=== PATIENT | female | born 1965 | race Caucasian/White ===

== ENCOUNTER 2020-10-18 12:20 | Inpatient (IN) | payer OTHER ==
[~2020-10-18] VITALS: Ht 182.9 cm; Wt 94.5 kg
[~2020-10-18 12:20] MED LIST: NORCO 5-325 TA1 EACH
[2020-10-18] MEDS ORDERED: SODIUM CHLORIDE 0.9% 100 ML 100 ML IV STA (12:42)
[2020-10-18] MEDS ORDERED: DONNATAL/LIDOCAINE/MAALOX 30 ML SUSP PO STA (12:42)
[2020-10-18] MEDS ORDERED: ONDANSETRON HCL INJ 2MG/ML 2ML 2 MG/ML VIAL IV NR ×2 (12:45→14:15)
[2020-10-18 13:05] LABS: BASOPHILS # (AUTO) 0.1 (0.0-0.1); BASOPHILS % 0.3 % (0.0-1.0); EOSINOPHILS % 0.1 % (0.0-6.0); HEMOGLOBIN 14.2 g/dL (12.0-16.0); LYMPHOCYTES # (AUTO) 1.4 (1.0-3.2); LYMPHOCYTES % 7.1 % (18.0-39.1); MEAN CORPUSCULAR HGB CONC 31.6 g/dL (31-35); MEAN CORPUSCULAR VOLUME 85.7 fL (81-99); MONOCYTES # (AUTO) 0.9 (0.2-0.8); MONOCYTES % 4.4 % (4.4-11.3); NEUTROPHILS # (AUTO) 17.4 (2.1-6.9); NEUTROPHILS % 87.5 % (38.7-80.0); PLATELET COUNT 369 x10e3/uL (140-360); RED BLOOD COUNT 5.25 x10e6/uL (3.6-5.1); RED CELL DISTRIBUTION WIDTH 13.5 % (11.7-14.4)
[2020-10-18 13:50] LABS: ALANINE AMINOTRANSFERASE 232 IU/L (0-55); ALBUMIN 4.1 g/dL (3.5-5.0); ALBUMIN/GLOBULIN RATIO 1.1 (0.8-2.0); ALKALINE PHOSPHATASE 189 IU/L (40-150); ANION GAP 14.2 mmol/L (8-16); BLOOD UREA NITROGEN 13 mg/dL (7-26); BUN/CREATININE RATIO 14 (6-25); CALCIUM 9.7 mg/dL (8.4-10.2); CARBON DIOXIDE 24 mmol/L (22-29); CHLORIDE 105 mmol/L (98-107); CREATINE KINASE 74 IU/L (29-168); CREATININE, SERUM 0.93 mg/dL (0.57-1.11); EST GLOMERULAR FILTRATION RATE 62 ML/MIN (60-); GLUCOSE 151 mg/dL (74-118); POTASSIUM 4.2 mmol/L (3.5-5.1); SODIUM 139 mmol/L (136-145)
[2020-10-18] MEDS ORDERED: IOPAMIDOL 370 MG/ML 200 ML INFUS..BTL INJ ONE (13:54)
[2020-10-18] MEDS ORDERED: SODIUM CHLORIDE 0.9% 50ML 50 ML ONE (13:54)
[2020-10-18] MEDS ORDERED: MORPHINE SULFATE INJ 4 MG/ML INJ 1ML IV ONE (14:30)
[2020-10-18] MEDS ORDERED: SODIUM CHLORIDE 0.9% 1000ML 1,000 ML ONE (14:45)
[2020-10-18 16:24] LABS: LIPASE 8481 U/L (8-78)
[2020-10-18] MEDS ORDERED: SODIUM CHLORIDE 0.9% 1000ML 1,000 ML IV SCH (16:30)
[2020-10-18] MEDS: HYDROMORPHONE 1MG/1ML INJ IV PRN ×3 (16:43→23:08)
[2020-10-18] MEDS: PIPERACILLIN/TAZOBACTAM 3.375 GM in SODIUM CHLORIDE 0.9% 50ML 50 ML IV SCH ×2 (16:45→21:25)
[2020-10-18 18:05] VITALS: BP 127/81
[2020-10-18] MEDS ORDERED: ATIVAN0.5 MG PO (18:17)
[2020-10-18] MEDS ORDERED: ARMOUR THYROID60 MG PO ×3 (18:17→18:26)
[2020-10-18] MEDS ORDERED: REXULTI3 MG PO (18:25)
[2020-10-18] MEDS ORDERED: ORENCIA50 MG/0.4 (18:25)
[2020-10-18] MEDS ORDERED: TEMAZEPAM30 MG PO (18:25)
[2020-10-18] MEDS ORDERED: METHYLPHENIDATE10 MG PO (18:25)
[2020-10-18] MEDS ORDERED: VENLAFAXINE HC100 MG PO (18:25)
[2020-10-18 18:31] VITALS: BP 127/81
[2020-10-18] MEDS: ONDANSETRON HCL INJ 2MG/ML 2ML 2 MG/ML VIAL IV PRN (19:36)
[2020-10-18 19:50] VITALS: BP 128/83
[2020-10-18 20:00] VITALS: BP 128/83
[2020-10-18 20:07] VITALS: BP 128/83
[2020-10-18] MEDS ORDERED: MEROPENEM 1 GM in SODIUM CHLORIDE 0.9% 100 ML IV STA (23:53)
[2020-10-19] VITALS (7 sets, daily range): BP systolic 118–145; BP diastolic 71–81
[2020-10-19] MEDS: LACTATED RINGER'S 1,000 ML INJ SCH ×7 (00:17→23:55)
[2020-10-19] MEDS: HYDROMORPHONE 1MG/1ML INJ IV PRN ×4 (02:09→11:39)
[2020-10-19] MEDS: ONDANSETRON HCL INJ 2MG/ML 2ML 2 MG/ML VIAL IV PRN ×4 (02:09→21:45)
[2020-10-19 05:49] LABS: BASOPHILS % 0.3 % (0.0-1.0); EOSINOPHILS # (AUTO) 0.1 (0.0-0.4); EOSINOPHILS % 0.6 % (0.0-6.0); HEMATOCRIT 37.6 % (34.2-44.1); HEMOGLOBIN 11.7 g/dL (12.0-16.0); LYMPHOCYTES % 18.5 % (18.0-39.1); MEAN CORPUSCULAR HGB CONC 31.1 g/dL (31-35); MEAN CORPUSCULAR VOLUME 86.6 fL (81-99); MONOCYTES # (AUTO) 0.7 (0.2-0.8); MONOCYTES % 5.9 % (4.4-11.3); NEUTROPHILS # (AUTO) 8.2 (2.1-6.9); NEUTROPHILS % 74.3 % (38.7-80.0); PLATELET COUNT 281 x10e3/uL (140-360); RED BLOOD COUNT 4.34 x10e6/uL (3.6-5.1); RED CELL DISTRIBUTION WIDTH 13.6 % (11.7-14.4)
[2020-10-19] MEDS: MEROPENEM 500 MG in SODIUM CHLORIDE 0.9% 50ML 50 ML IV SCH ×3 (06:06→21:45)
[2020-10-19 06:11] LABS: ALBUMIN 3.3 g/dL (3.5-5.0); ALBUMIN/GLOBULIN RATIO 1.1 (0.8-2.0); ANION GAP 13.9 mmol/L (8-16); CALCIUM 8.8 mg/dL (8.4-10.2); CHOL/HDL RATIO 4.6 (3.0-3.6); CREATININE, SERUM 0.8 mg/dL (0.57-1.11); POTASSIUM 3.9 mmol/L (3.5-5.1)
[2020-10-19 06:31] LABS: AMYLASE 2075 U/L (25-125)
[2020-10-19 07:29] LABS: LIPASE 1567 U/L (8-78)
[2020-10-19] MEDS ORDERED: SODIUM CHLORIDE 0.9% 50ML 50 ML ONE (08:29)
[2020-10-19] MEDS ORDERED: GADOBENATE DIMEGLUMINE 1 ML IV ONE (08:29)
[2020-10-19] MEDS: HYDROMORPHONE 2MG/ML 2 MG/ML ML IV PRN ×4 (12:17→21:45)
[2020-10-19 22:58] LABS: % IRON SATURATION 15 % (15-50); IRON 53 ug/dL (50-170); TOTAL IRON BINDING CAPACITY 350 ug/dL (261-478); TRANSFERRIN 250 mg/dL (180-382)
[2020-10-20] VITALS (8 sets, daily range): BP systolic 103–123; BP diastolic 63–79
[2020-10-20] MEDS: HYDROMORPHONE 2MG/ML 2 MG/ML ML IV PRN ×8 (01:00→23:19)
[2020-10-20 04:41] LABS: BASOPHILS % 0.3 % (0.0-1.0); EOSINOPHILS # (AUTO) 0.2 (0.0-0.4); EOSINOPHILS % 1.4 % (0.0-6.0); HEMATOCRIT 33.1 % (34.2-44.1); HEMOGLOBIN 10.4 g/dL (12.0-16.0); LYMPHOCYTES # (AUTO) 2.4 (1.0-3.2); LYMPHOCYTES % 21.3 % (18.0-39.1); MEAN CORPUSCULAR HEMOGLOBIN 26.9 pg (28-32); MEAN CORPUSCULAR HGB CONC 31.4 g/dL (31-35); MEAN CORPUSCULAR VOLUME 85.5 fL (81-99); MONOCYTES # (AUTO) 0.9 (0.2-0.8); MONOCYTES % 8.4 % (4.4-11.3); NEUTROPHILS # (AUTO) 7.5 (2.1-6.9); NEUTROPHILS % 68.2 % (38.7-80.0); PLATELET COUNT 240 x10e3/uL (140-360); RED BLOOD COUNT 3.87 x10e6/uL (3.6-5.1); RED CELL DISTRIBUTION WIDTH 13.4 % (11.7-14.4)
[2020-10-20 05:07] LABS: ALBUMIN 3.1 g/dL (3.5-5.0); ALBUMIN/GLOBULIN RATIO 1.1 (0.8-2.0); ANION GAP 11.6 mmol/L (8-16); CALCIUM 8.4 mg/dL (8.4-10.2); CREATININE, SERUM 0.74 mg/dL (0.57-1.11); POTASSIUM 3.6 mmol/L (3.5-5.1)
[2020-10-20] MEDS: LACTATED RINGER'S 1,000 ML INJ SCH ×6 (05:53→23:53)
[2020-10-20] MEDS: MEROPENEM 500 MG in SODIUM CHLORIDE 0.9% 50ML 50 ML IV SCH ×3 (05:53→21:16)
[2020-10-20] MEDS: ONDANSETRON HCL INJ 2MG/ML 2ML 2 MG/ML VIAL IV PRN ×2 (09:56→16:08)
[2020-10-21] VITALS (8 sets, daily range): BP systolic 108–133; BP diastolic 46–83
[2020-10-21] MEDS: HYDROMORPHONE 2MG/ML 2 MG/ML ML IV PRN ×6 (02:45→23:14)
[2020-10-21] MEDS: LACTATED RINGER'S 1,000 ML INJ SCH ×5 (04:00→21:30)
[2020-10-21 04:43] LABS: BASOPHILS % 0.3 % (0.0-1.0); EOSINOPHILS # (AUTO) 0.3 (0.0-0.4); EOSINOPHILS % 2.9 % (0.0-6.0); HEMATOCRIT 33.2 % (34.2-44.1); HEMOGLOBIN 10.4 g/dL (12.0-16.0); LYMPHOCYTES # (AUTO) 1.9 (1.0-3.2); LYMPHOCYTES % 17.4 % (18.0-39.1); MEAN CORPUSCULAR HEMOGLOBIN 26.9 pg (28-32); MEAN CORPUSCULAR HGB CONC 31.3 g/dL (31-35); MONOCYTES # (AUTO) 1.1 (0.2-0.8); MONOCYTES % 9.8 % (4.4-11.3); NEUTROPHILS # (AUTO) 7.7 (2.1-6.9); NEUTROPHILS % 69.2 % (38.7-80.0); PLATELET COUNT 234 x10e3/uL (140-360); RED BLOOD COUNT 3.86 x10e6/uL (3.6-5.1); RED CELL DISTRIBUTION WIDTH 13.2 % (11.7-14.4)
[2020-10-21 05:07] LABS: ALBUMIN 3.1 g/dL (3.5-5.0); ALBUMIN/GLOBULIN RATIO 0.9 (0.8-2.0); ANION GAP 13.5 mmol/L (8-16); CALCIUM 8.9 mg/dL (8.4-10.2); CREATININE, SERUM 0.73 mg/dL (0.57-1.11); POTASSIUM 3.5 mmol/L (3.5-5.1)
[2020-10-21] MEDS: MEROPENEM 500 MG in SODIUM CHLORIDE 0.9% 50ML 50 ML IV SCH ×3 (05:59→21:30)
[2020-10-21] MEDS ORDERED: ROCURONIUM BROMIDE 10 MG/ML 5ML VIAL IV ONE (12:50)
[2020-10-21] MEDS ORDERED: DEXAMETHASONE SOD PHOS INJ 4 MG/ML VIAL ONE (12:50)
[2020-10-21] MEDS ORDERED: PROPOFOL IV EMULSION 10 MG/ML 20 ML VIAL ONE (12:50)
[2020-10-21] MEDS ORDERED: ONDANSETRON HCL INJ 2MG/ML 2ML 2 MG/ML VIAL ONE (12:50)
[2020-10-21] MEDS ORDERED: GLYCOPYRROLATE INJ 0.2 MG/ML VIAL ONE (12:50)
[2020-10-21] MEDS ORDERED: SEVOFLURANE INHAL SOLN 250 ML PEN BTL ONE (12:50)
[2020-10-21] MEDS ORDERED: LIDOCAINE HCL 2% LOCAL INJ 5 ML SDV VIAL INJ ONE (12:50)
[2020-10-21] MEDS ORDERED: NEOSTIGMINE 1 MG/ML 10ML VIAL ONE (12:50)
[2020-10-21] MEDS ORDERED: POVIDONE IODINE 0.05% 0.05 % ML PO ONE (12:50)
[2020-10-21] MEDS: ONDANSETRON HCL INJ 2MG/ML 2ML 2 MG/ML VIAL IV PRN (13:00)
[2020-10-22] VITALS (7 sets, daily range): BP systolic 110–150; BP diastolic 73–82
[2020-10-22] MEDS: HYDROMORPHONE 2MG/ML 2 MG/ML ML IV PRN ×2 (02:11→05:35)
[2020-10-22 04:56] LABS: BASOPHILS % 0.4 % (0.0-1.0); EOSINOPHILS # (AUTO) 0.4 (0.0-0.4); EOSINOPHILS % 4.8 % (0.0-6.0); HEMOGLOBIN 10.3 g/dL (12.0-16.0); LYMPHOCYTES # (AUTO) 2.7 (1.0-3.2); MEAN CORPUSCULAR HEMOGLOBIN 27.7 pg (28-32); MEAN CORPUSCULAR HGB CONC 32.2 g/dL (31-35); MONOCYTES # (AUTO) 0.8 (0.2-0.8); MONOCYTES % 9.5 % (4.4-11.3); NEUTROPHILS # (AUTO) 4.3 (2.1-6.9); NEUTROPHILS % 52.2 % (38.7-80.0); PLATELET COUNT 242 x10e3/uL (140-360); RED BLOOD COUNT 3.72 x10e6/uL (3.6-5.1); RED CELL DISTRIBUTION WIDTH 13.2 % (11.7-14.4)
[2020-10-22 05:16] LABS: AMYLASE 111 U/L (25-125); LIPASE 25 U/L (8-78)
[2020-10-22] MEDS: MEROPENEM 500 MG in SODIUM CHLORIDE 0.9% 50ML 50 ML IV SCH ×3 (05:35→22:20)
[2020-10-22] MEDS: LACTATED RINGER'S 1,000 ML INJ SCH ×2 (05:35→20:40)
[2020-10-22] MEDS ORDERED: BUPIVACAINE HCL 0.5% INJ 30 ML VIAL INJ ONE (08:03)
[2020-10-22] MEDS ORDERED: IOPAMIDOL 300MG/ML 50ML INFUS..BTL IV ONE (08:03)
[2020-10-22] MEDS ORDERED: BUPIVACAINE LIPOSOME/PF 266 MG/20 ML IJ ONE (10:53)
[2020-10-22] MEDS ORDERED: FENTANYL CITRATE/PF 100MCG/2 ML INJ ONE ×2 (11:28→12:04)
[2020-10-22] MEDS ORDERED: ACETAMINOPHEN 1000 MG/100 ML IV PRN (11:30)
[2020-10-22] MEDS ORDERED: NALOXONE HCL INJ 0.4 MG/ML AMP IV PRN (11:30)
[2020-10-22] MEDS ORDERED: HYDROMORPHONE 1MG/1ML INJ ONE (11:51)
[2020-10-22] MEDS: HYDROMORPHONE 0.2MG/ML-SOD CHL 30ML PCA SYRINGE IV PRN ×2 (11:53→17:30)
[2020-10-22] MEDS ORDERED: MIDAZOLAM HCL 2 MG/2 ML VIAL ONE (12:04)
[2020-10-22] MEDS ORDERED: HYDROMORPHONE 1MG/1ML INJ IV STA (19:39)
[2020-10-22] MEDS: LORAZEPAM INJ 2 MG/ML VIAL IV PRN (20:41)
[2020-10-23] VITALS (8 sets, daily range): BP systolic 124–145; BP diastolic 69–84
[2020-10-23] MEDS: LACTATED RINGER'S 1,000 ML INJ SCH ×3 (00:43→17:56)
[2020-10-23] MEDS: ONDANSETRON HCL INJ 2MG/ML 2ML 2 MG/ML VIAL IV PRN (02:58)
[2020-10-23] MEDS: MEROPENEM 500 MG in SODIUM CHLORIDE 0.9% 50ML 50 ML IV SCH ×3 (06:00→21:31)
[2020-10-23 06:04] LABS: BASOPHILS % 0.2 % (0.0-1.0); EOSINOPHILS # (AUTO) 0.1 (0.0-0.4); EOSINOPHILS % 0.6 % (0.0-6.0); HEMATOCRIT 32.1 % (34.2-44.1); HEMOGLOBIN 10.4 g/dL (12.0-16.0); LYMPHOCYTES # (AUTO) 1.8 (1.0-3.2); LYMPHOCYTES % 17.8 % (18.0-39.1); MEAN CORPUSCULAR HEMOGLOBIN 27.4 pg (28-32); MEAN CORPUSCULAR HGB CONC 32.4 g/dL (31-35); MEAN CORPUSCULAR VOLUME 84.7 fL (81-99); NEUTROPHILS # (AUTO) 7.2 (2.1-6.9); NEUTROPHILS % 71.2 % (38.7-80.0); PLATELET COUNT 308 x10e3/uL (140-360); RED BLOOD COUNT 3.79 x10e6/uL (3.6-5.1)
[2020-10-23 06:28] LABS: ALBUMIN/GLOBULIN RATIO 0.9 (0.8-2.0); ANION GAP 13.6 mmol/L (8-16); CALCIUM 8.7 mg/dL (8.4-10.2); CREATININE, SERUM 0.72 mg/dL (0.57-1.11); POTASSIUM 3.6 mmol/L (3.5-5.1)
[2020-10-23] MEDS: HYDROMORPHONE 0.2MG/ML-SOD CHL 30ML PCA SYRINGE IV PRN ×3 (08:00→20:00)
[2020-10-23] MEDS: LORAZEPAM INJ 2 MG/ML VIAL IV PRN (12:19)
[2020-10-24] VITALS (8 sets, daily range): BP systolic 113–130; BP diastolic 63–79
[2020-10-24] MEDS: HYDROMORPHONE 0.2MG/ML-SOD CHL 30ML PCA SYRINGE IV PRN (04:18)
[2020-10-24] MEDS: MEROPENEM 500 MG in SODIUM CHLORIDE 0.9% 50ML 50 ML IV SCH ×3 (06:31→22:50)
[2020-10-24 08:07] LABS: BASOPHILS % 0.4 % (0.0-1.0); EOSINOPHILS # (AUTO) 0.2 (0.0-0.4); EOSINOPHILS % 1.9 % (0.0-6.0); HEMATOCRIT 33.9 % (34.2-44.1); HEMOGLOBIN 10.8 g/dL (12.0-16.0); LYMPHOCYTES # (AUTO) 1.9 (1.0-3.2); LYMPHOCYTES % 20.7 % (18.0-39.1); MEAN CORPUSCULAR HEMOGLOBIN 27.1 pg (28-32); MEAN CORPUSCULAR HGB CONC 31.9 g/dL (31-35); MEAN CORPUSCULAR VOLUME 85.2 fL (81-99); MONOCYTES # (AUTO) 0.8 (0.2-0.8); NEUTROPHILS # (AUTO) 6.3 (2.1-6.9); NEUTROPHILS % 67.6 % (38.7-80.0); PLATELET COUNT 333 x10e3/uL (140-360); RED BLOOD COUNT 3.98 x10e6/uL (3.6-5.1); RED CELL DISTRIBUTION WIDTH 12.9 % (11.7-14.4)
[2020-10-24 08:32] LABS: ALBUMIN 3.1 g/dL (3.5-5.0); ALBUMIN/GLOBULIN RATIO 0.9 (0.8-2.0); ANION GAP 11.5 mmol/L (8-16); CALCIUM 9.2 mg/dL (8.4-10.2); CREATININE, SERUM 0.72 mg/dL (0.57-1.11); POTASSIUM 3.5 mmol/L (3.5-5.1)
[2020-10-24] MEDS: LACTATED RINGER'S 1,000 ML INJ SCH (08:50)
[2020-10-24] MEDS ORDERED: HYDROMORPHONE 0.2MG/ML-SOD CHL 30ML PCA SYRINGE IV PRN (10:00)
[2020-10-24] MEDS ORDERED: HYDROCODONE/APAP 7.5MG-325MG 1 EA TAB PO PRN (18:30)
[2020-10-24] MEDS: HYDROMORPHONE 1MG/1ML INJ IV PRN (22:19)
[2020-10-25] VITALS: BP 121/84
[2020-10-25 04:00] VITALS: BP 123/84
[2020-10-25] MEDS: LACTATED RINGER'S 1,000 ML INJ SCH (04:26)
[2020-10-25 05:52] LABS: BASOPHILS % 0.3 % (0.0-1.0); EOSINOPHILS # (AUTO) 0.2 (0.0-0.4); EOSINOPHILS % 1.7 % (0.0-6.0); HEMOGLOBIN 11.6 g/dL (12.0-16.0); LYMPHOCYTES % 21.1 % (18.0-39.1); MEAN CORPUSCULAR HEMOGLOBIN 27.2 pg (28-32); MEAN CORPUSCULAR HGB CONC 32.2 g/dL (31-35); MEAN CORPUSCULAR VOLUME 84.5 fL (81-99); MONOCYTES # (AUTO) 0.8 (0.2-0.8); MONOCYTES % 8.3 % (4.4-11.3); NEUTROPHILS # (AUTO) 6.5 (2.1-6.9); NEUTROPHILS % 68.1 % (38.7-80.0); PLATELET COUNT 359 x10e3/uL (140-360); RED BLOOD COUNT 4.26 x10e6/uL (3.6-5.1)
[2020-10-25 06:16] LABS: ALBUMIN 3.2 g/dL (3.5-5.0); ALBUMIN/GLOBULIN RATIO 0.8 (0.8-2.0); ANION GAP 12.9 mmol/L (8-16); CALCIUM 9.4 mg/dL (8.4-10.2); CREATININE, SERUM 0.71 mg/dL (0.57-1.11); POTASSIUM 3.9 mmol/L (3.5-5.1)
[2020-10-25] MEDS: MEROPENEM 500 MG in SODIUM CHLORIDE 0.9% 50ML 50 ML IV SCH ×2 (06:29→14:30)
[2020-10-25] MEDS: HYDROMORPHONE 1MG/1ML INJ IV PRN ×4 (06:35→17:11)
[2020-10-25 07:46] VITALS: BP 126/77
[2020-10-25 08:00] VITALS: BP 126/77
[2020-10-25 11:28] VITALS: BP 126/82
[2020-10-25 15:52] VITALS: BP 112/101
[2020-10-25] MEDS ORDERED: HYDROCODONE/APAP 7.5MG-325MG 1 EA TAB PO NR (19:00)
== END 2020-10-25 21:40 | disposition home or self-care (01) | DRG 412 ==
LOC: ER 13:08 → ERHOLD 16:24 → MED/SURG2 18:15
PROC: 0FC90ZZ Extirpation of Matter from Common Bile Duct, Open Approach (ICD-10-PCS; 2020-10-22)
PROC: 0FJ44ZZ Inspection of Gallbladder, Percutaneous Endoscopic Approach (ICD-10-PCS; 2020-10-22)
PROC: 0F9900Z Drainage of Common Bile Duct with Drainage Device, Open Approach (ICD-10-PCS; 2020-10-22)
PROC: 3C1ZX8Z Irrigation of Indwelling Device using Irrigating Substance, External Approach (ICD-10-PCS; 2020-10-22)
PROC: BF532Z0 Other Imaging of Gallbladder and Bile Ducts using Fluorescing Agent, Intraoperative (ICD-10-PCS; 2020-10-22)
PROC: 0FT40ZZ Resection of Gallbladder, Open Approach (ICD-10-PCS; principal; 2020-10-22 08:00)
DX: K85.10 Biliary acute pancreatitis without necrosis or infection (principal); K80.62 Calculus of gallbladder and bile duct with acute cholecystitis without obstruction; D63.8 Anemia in other chronic diseases classified elsewhere
CPT/HCPCS: 36415; 71045; 74177; 74183; 74300; 80053; 80061; 82150; 82550; 82553; 82607; 82746; 82948; 83540; 83690; 83880; 84466; 84484; 85025; 85045; 88304; 93005; 99284; J1100; J1170; J2001; J2060; J2185; J2250; J2270; J2405; J2543; J2710; J3010; J7030; J7050; J7121; Q9967

== ENCOUNTER → 2020-11-09 | Outpatient (CLI) | payer OTHER ==
[~2020-11-09] MED LIST changes: +ARMOUR THYROID60 MG PO; +ATIVAN0.5 MG PO; +IOPAMIDOL 300MG/ML 100 ML INFUS..BTL IV ONE; +METHYLPHENIDATE10 MG PO; +ORENCIA50 MG/0.4; +REXULTI3 MG PO; +TEMAZEPAM30 MG PO; +VENLAFAXINE HC100 MG PO
[2020-11-09 13:58] LABS: BASOPHILS % 0.5 % (0.0-1.0); EOSINOPHILS # (AUTO) 0.1 (0.0-0.4); EOSINOPHILS % 1.5 % (0.0-6.0); HEMATOCRIT 38.7 % (34.2-44.1); HEMOGLOBIN 12.4 g/dL (12.0-16.0); LYMPHOCYTES # (AUTO) 2.3 (1.0-3.2); LYMPHOCYTES % 30.6 % (18.0-39.1); MEAN CORPUSCULAR HEMOGLOBIN 26.8 pg (28-32); MEAN CORPUSCULAR VOLUME 83.6 fL (81-99); MONOCYTES # (AUTO) 0.6 (0.2-0.8); MONOCYTES % 8.2 % (4.4-11.3); NEUTROPHILS # (AUTO) 4.4 (2.1-6.9); NEUTROPHILS % 58.9 % (38.7-80.0); PLATELET COUNT 362 x10e3/uL (140-360); RED BLOOD COUNT 4.63 x10e6/uL (3.6-5.1); RED CELL DISTRIBUTION WIDTH 13.3 % (11.7-14.4)
[2020-11-09 14:17] LABS: ALBUMIN 3.6 g/dL (3.5-5.0); ALBUMIN/GLOBULIN RATIO 0.9 (0.8-2.0); ANION GAP 12.5 mmol/L (8-16); CALCIUM 9.9 mg/dL (8.4-10.2); CREATININE, SERUM 0.81 mg/dL (0.57-1.11); POTASSIUM 3.5 mmol/L (3.5-5.1)
== END ==
LOC: DX 12:42
PROVIDERS: ATTEND Surgery
DX: K80.10 Calculus of gallbladder with chronic cholecystitis without obstruction (principal); K80.50 Calculus of bile duct without cholangitis or cholecystitis without obstruction
CPT/HCPCS: 36415; 47531; 80053; 82150; 85025; Q9967

== ENCOUNTER → 2021-07-05 | Outpatient (CLI) | payer OTHER ==
[~2021-07-05] MED LIST changes: -IOPAMIDOL 300MG/ML 100 ML INFUS..BTL IV ONE; +IOPAMIDOL 370 MG/ML 200 ML INFUS..BTL INJ ONE; +SODIUM CHLORIDE 0.9% 50ML 50 ML ONE
== END ==
LOC: CT 16:08
PROVIDERS: ATTEND Internal Medicine
DX: R10.11 Right upper quadrant pain (principal); R10.13 Epigastric pain; Z87.19 Personal history of other diseases of the digestive system; Z90.49 Acquired absence of other specified parts of digestive tract
CPT/HCPCS: 74177; Q9967

== ENCOUNTER → 2022-01-30 | Outpatient (CLI) | payer OTHER ==
[~2022-01-30] MED LIST changes: -IOPAMIDOL 370 MG/ML 200 ML INFUS..BTL INJ ONE; +MIDAZOLAM HCL 2 MG/2 ML VIAL ONE; -SODIUM CHLORIDE 0.9% 50ML 50 ML ONE
== END ==
LOC: MRI 12:28
PROVIDERS: ATTEND Physical Medicine & Rehabilitation Pain Medicine
DX: R20.0 Anesthesia of skin (principal)
CPT/HCPCS: 72148; J2250

== ENCOUNTER 2022-10-08 16:05 | Emergency (ER) | payer OTHER ==
[~2022-10-08] VITALS: Ht 182.9 cm; Wt 94.3 kg
[~2022-10-08 16:05] MED LIST changes: -MIDAZOLAM HCL 2 MG/2 ML VIAL ONE
[2022-10-08 16:14] VITALS: O2SAT 100
[2022-10-08] MEDS ORDERED: DIPHENHYDRAMINE HCL INJ 50 MG/ML VIAL IV STA (16:25)
[2022-10-08] MEDS ORDERED: KETOROLAC TROMETHAMINE 30 MG/ML VIAL IV STA (16:25)
[2022-10-08] MEDS ORDERED: METOCLOPRAMIDE HCL 10 MG/2ML VIAL IV ONE (16:30)
[2022-10-08] MEDS ORDERED: SODIUM CHLORIDE 0.9% 1000ML 1,000 ML IV SCH (16:30)
== END 2022-10-08 18:22 | disposition home or self-care (01) ==
LOC: ER 16:08
DX: R51.9 Headache, unspecified (principal); E03.9 Hypothyroidism, unspecified; F90.9 Attention-deficit hyperactivity disorder, unspecified type; M06.9 Rheumatoid arthritis, unspecified; K25.9 Gastric ulcer, unspecified as acute or chronic, without hemorrhage or perforation; K21.9 Gastro-esophageal reflux disease without esophagitis; M54.9 Dorsalgia, unspecified; G89.29 Other chronic pain; Z79.899 Other long term (current) drug therapy
CPT/HCPCS: 70450; 99283; J1200; J1885; J2765; J7030

== ENCOUNTER → 2024-01-13 | Outpatient (REF) | payer OTHER | LOC: MAMMO 13:23 | PROVIDERS: ATTEND Family Medicine | DX: Z12.31 Encounter for screening mammogram for malignant neoplasm of breast (principal) | CPT/HCPCS: 77067 ==

== ENCOUNTER → 2024-12-15 | Day surgery (SDC) | payer OTHER ==
[~2024-12-15] MED LIST changes: +ACTEMRA162 MG/0.9 SC; +ADDERALL XR 2020 MG PO; +CLONAZEPAM0.5 MG PO; +COQ-10100 MG PO; +CRESTOR40 MG PO; +ETOMIDATE 40 MG/ 20ML VIAL IV ONE; +FENTANYL CITRATE/PF 100MCG/2 ML INJ ONE; +LIDOCAINE HCL 2% LOCAL INJ 5 ML SDV VIAL INJ ONE; +METAMUCIL FIBE3.4 GM PO; +METOCLOPRAMIDE HCL 10 MG/2ML VIAL ONE; +MIDAZOLAM HCL 2 MG/2 ML VIAL ONE; +MOTRIN200 MG PO; +ONDANSETRON ODT8 MG PO; +PEPCID20 MG PO; +PRILOSEC OTC20 MG; +TRINTELLIX20 MG PO
[2024-12-15] MEDS: LACTATED RINGER'S 1,000 ML ONE (14:23)
[2024-12-15] MEDS: FENTANYL CITRATE/PF 100MCG/2 ML INJ ONE (14:24)
[2024-12-15 15:39] VITALS: TEMP 97.8
[2024-12-15 15:55] VITALS: BP 161/95; PULSE 60; RESP 16; O2SAT 97
== END | disposition home or self-care (01) ==
LOC: OR 13:24
PROVIDERS: ATTEND Internal Medicine Gastroenterology
DX: K29.70 Gastritis, unspecified, without bleeding (principal); K25.9 Gastric ulcer, unspecified as acute or chronic, without hemorrhage or perforation; K20.90 Esophagitis, unspecified without bleeding; K31.A0 Gastric intestinal metaplasia, unspecified; E78.5 Hyperlipidemia, unspecified; E03.9 Hypothyroidism, unspecified; G89.29 Other chronic pain; Z71.89 Other specified counseling; Z71.3 Dietary counseling and surveillance; M06.9 Rheumatoid arthritis, unspecified; F41.9 Anxiety disorder, unspecified; F32.A Depression, unspecified; F90.9 Attention-deficit hyperactivity disorder, unspecified type; F17.290 Nicotine dependence, other tobacco product, uncomplicated; Z01.810 Encounter for preprocedural cardiovascular examination; Z79.1 Long term (current) use of non-steroidal anti-inflammatories (NSAID); Z79.899 Other long term (current) drug therapy; Z68.26 Body mass index [BMI] 26.0-26.9, adult
CPT/HCPCS: 43239; 93005; J2003; J2250; J2470; J2765; J3010; J7121